=== PATIENT | female | born 1975 | race Caucasian/White ===

== ENCOUNTER 2021-12-20 13:12 | Emergency (ER) | payer SELFPAY ==
[~2021-12-20] VITALS: Ht 160 cm; Wt 99.8 kg
--- NOTE | 2021-12-20 13:30 | NUR ---
Pt presents with Sheriff toribio arreola to book MSE. Pt denies Past Med. Hx. Pt states anxious and denies any acute distress.
[2021-12-20 13:34] VITALS: BP_SYST 129
--- NOTE | 2021-12-20 14:00 | NUR ---
RAJAN Moulton at bedside examining patient.
--- NOTE | 2021-12-20 15:00 | NUR ---
given written and verbal discharge instructions and verbalizes understanding. ER MD discussed with patient the results and treatment provided. Patient in stable condition. ID arm band removed. Opportunity for questions provided and answered. Medication side effect fact sheet provided.
--- NOTE | 2021-12-20 19:30 | NUR ---
Note marlen in EDM - 12/20/21 at 1955 by SOCORRO given written and verbal discharge instructions and verbalizes understanding. RAJAN WARREN discussed with patient the results and treatment provided. Patient in stable condition. ID arm band removed. Opportunity for questions provided and answered. Medication side effect fact sheet provided.
[2021-12-20 19:40] VITALS: BP_SYST 129
--- NOTE | 2021-12-20 19:48 | NUR ---
Note marlen in EDM - 12/20/21 at 2007 by [email or web address] Written and verbal consent obtained from patient for blood alcohol, name and verified by patient. Disinfected patient's skin with IODINE that did not contain alcohol or other volatile organic compound. Collected the blood from the subject named by venipuncture, in the presence of Officer JOSE. Used a sterile, dry hypodermic needle and dry vacuum blood collection. Two dry vacuum blood collection was supplied by the officer named above. Withdrew a specimen of blood from LT WRIST of the subject named above. Inverted both blood tubes several times to ensure that the preservative and anticoagulant were thoroughly mixed in the blood specimen. I initialed both blood tube labels for identification. The labeled blood tubes were handed directly to the Officer named above. The blood tubes stopper remained in place while I had possession of the blood tubes. The Officer placed tubes into envelope and sealed it in my presence. Envelope initialed by myself and Officer named above. Patient tolerated well, bandage applied, and bleeding controlled.
== END 2021-12-20 19:40 ==
LOC: SED 13:12
DX: F10.129 Alcohol abuse with intoxication, unspecified (principal); Z79.899 Other long term (current) drug therapy; V47.5XXA Car driver injured in collision with fixed or stationary object in traffic accident, initial encounter; Y93.89 Activity, other specified; Y92.89 Other specified places as the place of occurrence of the external cause; Y99.8 Other external cause status; Y90.6 Blood alcohol level of 120-199 mg/100 ml
CPT/HCPCS: 99283

== ENCOUNTER 2021-12-20 18:15 | Emergency (ER) | payer SELFPAY ==
[~2021-12-20] VITALS: Ht 160 cm; Wt 99.8 kg
[2021-12-20 18:21] VITALS: BP_SYST 135
--- NOTE | 2021-12-20 18:27 | NUR ---
Patient to ER bed H1 to gown for evaluation. Side rails up.
--- NOTE | 2021-12-20 19:45 | NUR ---
Written and verbal consent obtained from patient for blood alcohol, name and verified by patient. Disinfected patient's skin with IODINE that did not contain alcohol or other volatile organic compound. Collected the blood from the subject named by venipuncture, in the presence of Officer JOSE. Used a sterile, dry hypodermic needle and dry vacuum blood collection. Two dry vacuum blood collection was supplied by the officer named above. Withdrew a specimen of blood from LT WRIST of the subject named above. Inverted both blood tubes several times to ensure that the preservative and anticoagulant were thoroughly mixed in the blood specimen. I initialed both blood tube labels for identification. The labeled blood tubes were handed directly to the Officer named above. The blood tubes stopper remained in place while I had possession of the blood tubes. The Officer placed tubes into envelope and sealed it in my presence. Envelope initialed by myself and Officer named above. Patient tolerated well, bandage applied, and bleeding controlled.
== END 2021-12-20 19:45 ==
LOC: SED 18:15
DX: Z02.83 Encounter for blood-alcohol and blood-drug test (principal)